=== PATIENT | male | born 1980 | race American Indian/Alaskan Native ===

== ENCOUNTER 2022-01-03 14:03 | Outpatient (CLI) | payer BC ==
[2022-01-03 15:04] LABS: Blood Urea Nitrogen 14 mg/dL (9-20)
--- NOTE | 2022-01-03 16:27 | Cat Scan Report ---
CTA CHEST (AORTIC ANEURYSM) INDICATION / CLINICAL INFORMATION: I77.810 AORTIC ROOT ENLARGEMENT. TECHNIQUE: Axial CT images were obtained through the chest after injection of 100 cc of Omnipaque 350 IV contrast. 3 plane MIP and/or 3D reconstructions were produced. All CT scans at this location are performed using CT dose reduction for ALARA by means of automated exposure control. COMPARISON: None available. FINDINGS: HEART: - Size: Normal. - [place] Coronary Atherosclerosis: None. - Pericardium: No pericardial effusion. THORACIC AORTA: - Dissection: No dissection. - Aneurysm: The aortic root measures 5.3 cm in diameter on coronal MIPS image 57. The mid ascending a amy measures 4.1 cm. The descending thoracic aorta measures 3.2 cm at the same level. The aortic arc h measures 3.4 cm. - Atherosclerosis: No significant atherosclerosis. GREAT VESSELS: No acute abnormality. No significant atherosclerosis. PULMONARY ARTERIES: No pulmonary emboli. CHEST VEINS: Single SVC of normal caliber as visualized to the right of midline. No significant abnor mality. ADDITIONAL CHEST FINDINGS: The lungs are generally clear with minor atelectatic changes in the lung b ases. No parenchymal disease or suspicious lung lesion. UPPER ABDOMEN: No signficant abnormality. SKELETAL SYSTEM: No significant abnormality. IMPRESSION: 1. The aortic root measures 5.3 cm in diameter. Signer Name: Miguel Holt Jr, MD Signed: 01/03/2022 4:23 PM Workstation Name: [id number]
== END 2022-01-03 14:04 | disposition home or self-care (01) ==
LOC: CT 14:03
PROVIDERS: ATTEND Internal Medicine Cardiovascular Disease
DX: I77.810 Thoracic aortic ectasia (principal)
CPT/HCPCS: 36415; 71275; 82565; 84520; Q9967